=== PATIENT | male | born 1950 | race Caucasian/White ===

== ENCOUNTER 2018-02-04 18:03 | Emergency (ER) | payer OTHER, BC ==
--- NOTE | 2018-02-04 18:06 | PDOC ---
History of Present Illness <Mely Gonzalez - Last Filed: 02/04/18 18:23> - General History Source: Patient Exam Limitations: No Limitations - History of Present Illness Initial Comments: 02/04/18 18:38 The patient is a 67 year old male with a significant PMH of COPD, hypertension , GERD, and knee surgery who presents to the emergency department with a head laceration since earlier today. The patient reports that he was at home handling a jacking cart when the handle hit him on the right side of his head. The patient denies any loc, headache or blurred vision. He denies any other injury or fall. The patient states that after hitting his head he applied a steristrip to the laceration site. He states that his tetanus are up to date. The patient denies any other symptoms. He denies any fever, chills, nausea, vomit, diarrhea, constipation, or urinary symptoms. He denies chest pain, shortness of breath, and dizziness. The patient denies any other complaints. PCP: Dr. Eduardo <Victorino Cordoba - Last Filed: 02/04/18 18:40> - General Chief Complaint: Injury Stated Complaint: RT EYEBROW LACERATION Time Seen by Provider: 02/04/18 18:04 Past History - Past Medical History Anemia: No Asthma: Yes Cancer: No Cardiac Disorders: No CVA: No COPD: Yes CHF: No Dementia: No Diabetes: No GI Disorders: Yes (GERD) Disorders: Yes (BPH) HTN: Yes Hypercholesterolemia: Yes Liver Disease: No Seizures: No Thyroid Disease: No - Surgical History Orthopedic Surgery: (NA) - Suicide/Smoking/Psychosocial Hx Smoking History: Former smoker Have you smoked in the past 12 months: No Number of Cigarettes Smoked Daily: 0 If you are a former smoker, when did you quit?: 1979 Hx Alcohol Use: Yes (2-3 BEERS A DAY) Substance Use Type: Alcohol Hx Substance Use Treatment: No <Mely Gonzalez - Last Filed: 02/04/18 18:23> <Victorino Cordoba - Last Filed: 02/04/18 18:40> - Past Medical History Allergies/Adverse Reactions: Allergies Allergy/AdvReac Type Severity Reaction Status Date / Time Gadolinium-Containing Allergy Severe RAPID Verified 02/04/18 18:04 Contrast Medi HEART RATE Home Medications: Ambulatory Orders Atorvastatin Ca [Lipitor] 20 mg PO DAILY 05/29/14 Fexofenadine HCl [Chantale] 180 mg PO DAILY 05/29/14 Losartan Potassium [Cozaar -] 50 mg PO DAILY 05/29/14 Pantoprazole Sodium [Protonix -] 40 mg PO DAILY 05/29/14 Tamsulosin HCl [Flomax] 0.4 mg PO HS 05/29/14 Review of Systems - Review of Systems Able to Perform ROS?: Yes Comments:: 02/04/18 18:39 GENERAL/CONSTITUTIONAL: (+)head laceration.No fever or chills. No weakness. HEAD, EYES, EARS, NOSE AND THROAT: No change in vision. No ear pain or discharge. No sore throat. CARDIOVASCULAR: No chest pain or shortness of breath. RESPIRATORY: No cough, wheezing, or hemoptysis. GASTROINTESTINAL: No nausea, vomiting, diarrhea or constipation. GENITOURINARY: No dysuria, frequency, or change in urination. MUSCULOSKELETAL: No joint or muscle swelling or pain. No neck or back pain. SKIN: No rash NEUROLOGIC: No headache, vertigo, loss of consciousness, or change in strength/ sensation. ENDOCRINE: No increased thirst. No abnormal weight change. HEMATOLOGIC/LYMPHATIC: No anemia, easy bleeding, or history of blood clots. ALLERGIC/IMMUNOLOGIC: No hives or skin allergy. <Victorino Cordoba - Last Filed: 02/04/18 18:40> *Physical Exam - Vital Signs Last Vital Signs Temp Pulse Resp BP Pulse Ox 98.5 F 70 20 139/71 98 02/04/18 18:04 02/04/18 18:04 02/04/18 18:04 02/04/18 18:04 02/04/18 18:04 - Physical Exam Comments: 02/04/18 18:39 GENERAL: Awake, alert, and fully oriented, in no acute distress HEAD: (+) 1 cm laceration to right lateral eyebrow, Mild swelling. No active bleeding. EYES: PERRLA, EOMI, sclera anicteric, conjunctiva clear ENT: Auricles normal inspection, hearing grossly normal, nares patent, oropharynx clear without exudates. Moist mucosa NECK: Normal ROM, supple, no lymphadenopathy, JVD, or masses LUNGS: Breath sounds equal, clear to auscultation bilaterally. No wheezes, and no crackles HEART: Regular rate and rhythm, normal S1 and S2, no murmurs, rubs or gallops ABDOMEN: Soft, nontender, normoactive bowel sounds. No guarding, no rebound. No masses EXTREMITIES: Normal range of motion, no edema. No clubbing or cyanosis. No cords, erythema, or tenderness NEUROLOGICAL: Cranial nerves II through XII grossly intact. Normal speech, normal gait SKIN: Warm, Dry, normal turgor, no rashes or lesions noted. <Victorino Cordoba - Last Filed: 02/04/18 18:40> Procedures - Laceration/Wound Repair Right Upper Face Wound Length: to 2.5 cm Wound Explored: clean Wound's Depth, Shape: linear Irrigated w/ Saline: Yes Wound Repaired With: Dermabond Progress: 02/04/18 18:24 pt tolerated the procedure well <Mely Gonzalez - Last Filed: 02/04/18 18:23> Medical Decision Making - Medical Decision Making 02/04/18 18:23 a/p: 67yo male with linear laceration to R lateral eyebrow -no loc no head or neck pain -tetanus utd no active bleeding wound clean -no eye complaints will dermabound and d/c with follow up with his PMD this week discussed local wound care and all reasons to return to the ED <Mely Gonzalez - Last Filed: 02/04/18 18:23> *DC/Admit/Observation/Transfer - Discharge Dispostion Decision to Admit order: No - Attestations Physician Attestion: 02/04/18 18:27 I, Dr. Mely Gonzalez, DO, attest that this document has been prepared under my direction and personally reviewed by me in its entirety. I further attest, that it accurately reflects all work, treatment, procedures and medical decision -making performed by me. <Mely Gonzalez - Last Filed: 02/04/18 18:23> - Attestations Scribe Attestion: 02/04/18 18:39 Documentation prepared by Victorino Cordoba, acting as medical examiner for Mely Gonzalez MD. <Victorino Cordoba - Last Filed: 02/04/18 18:40> Diagnosis at time of Disposition: Facial laceration - Discharge Dispostion Disposition: HOME Condition at time of disposition: Stable - Referrals Referrals: Bill Eduardo MD [Non Staff, Medical] - - Patient Instructions Printed Discharge Instructions: DI for Laceration Repair With Dermabond, DI for Closed Head Injury Additional Instructions: Please do not get the wound wet for 24 hours. After 24 hours you may shower and allow water to wash over the wound, do not soak the wound. Pat dry. You may cover or keep the wound open to the air. Do not pick at the dermabound. Please make an appointment to see your PMD on Tuesday or Tuesday of this week for a wound check. Any drainage or redness to the wound please return to the ED. Any further complaints, please return to the ED.
[2018-02-04 18:29] VITALS: BP 139/71; PULSE 70; TEMP 98.5; BMI 33.1
== END 2018-02-04 18:31 | disposition home or self-care (01) ==
LOC: FER 18:03
PROC: 0HQ1XZZ Repair Face Skin, External Approach (ICD-10-PCS; principal; 2018-02-04)
DX: S01.111A Laceration without foreign body of right eyelid and periocular area, initial encounter (principal); W22.8XXA Striking against or struck by other objects, initial encounter; Y93.89 Activity, other specified; Y92.9 Unspecified place or not applicable; Z87.891 Personal history of nicotine dependence; J44.9 Chronic obstructive pulmonary disease, unspecified; I10 Essential (primary) hypertension; K21.9 Gastro-esophageal reflux disease without esophagitis
CPT/HCPCS: 12011; 99281-25

== ENCOUNTER 2024-04-11 16:35 | Emergency (ER) | payer OTHER, BC ==
[2024-04-11 16:53] VITALS: BP 137/75; PULSE 73; RESP 18; TEMP 98.4; BMI 31.0
[2024-04-11] MEDS ORDERED: ACETAMINOPHEN 500 MG TABLET (FP) ONE (17:01)
[2024-04-11] MEDS ORDERED: DIPHTH,PERTUSS(ACELL),TET 0.5 ML DISP.SYRIN IM ONE (17:02)
[2024-04-11] MEDS: DIPHTH,PERTUSS(ACELL),TET 0.5 ML DISP.SYRIN IM ONE (17:10)
[2024-04-11] MEDS: ACETAMINOPHEN 500 MG TABLET (FP) PO ONE (17:11)
== END 2024-04-11 18:07 | disposition home or self-care (01) ==
LOC: FER 16:35
PROC: 0XQNXZZ Repair Right Index Finger, External Approach (ICD-10-PCS; principal; 2024-04-11)
PROC: 3E0234Z Introduction of Serum, Toxoid and Vaccine into Muscle, Percutaneous Approach (ICD-10-PCS; 2024-04-11)
DX: S61.210A Laceration without foreign body of right index finger without damage to nail, initial encounter (principal); W23.1XXA Caught, crushed, jammed, or pinched between stationary objects, initial encounter; Y99.0 Civilian activity done for income or pay; Z23 Encounter for immunization
CPT/HCPCS: 12001-25; 90471; 90715; 99284-25

== ENCOUNTER 2024-04-19 13:23 | Emergency (ER) | payer OTHER, BC ==
[2024-04-19 13:44] VITALS: BP 138/69; PULSE 68; RESP 18; TEMP 97.7; BMI 31.3
== END 2024-04-19 14:04 | disposition home or self-care (01) ==
LOC: FER 13:23
DX: Z48.02 Encounter for removal of sutures (principal)
CPT/HCPCS: 99281-25